=== PATIENT | female | born 2000 | race Caucasian/White ===

== ENCOUNTER 2019-11-28 18:04 | Emergency (ER) | payer OTHER ==
--- OUTSIDE RECORDS SUMMARY | 2019-11-28 18:07 | XMS REPORT | Continuity of Care Document ---
:2000 Author Organization [facility] Care Team Providers Name Role Phone RAYMON HARDWICK Admitting Physician RAYMON HARDWICK Attending Physician Hospital Admission Diagnosis Code Admission Diagnosis Date [id number] Spotting per vagina in Social History Element Description Code Description Smoking Status Start Date End Date Code System Smoking Status [id number] Unknown if ever SNOMED-CT smoked Problems Code Code System Problem Name Start Date End Date Status 78653954 SNOMED-CT Threatened 04/02/2019 Active 46153023 SNOMED-CT Threatened 03/12/2019 Active 012833769 SNOMED-CT Cellulitis of periorbital region u Active 6661171 SNOMED-CT Conjunctivitis u Active Medications RxNorm Medication Dose Route Instructions Indications Start End Status Date Date Doxycycline 100 oral orally every Active Hyclate Oral milligram 12 hours Fluconazole 200 200 oral orally twice Active MG Oral Tablet milligram a week (1 PO Twice a week for 2 weeks) 539052 moxifloxacin 5 1 drop ophthalmic into the Active MG/ML Ophthalmic (eye) eye(s) 3 Solution times per day (right eye) 19821211 Sulfamethoxazole 1 tablet oral orally every Active 800 MG / 12 hours Trimethoprim 160 MG Oral Tablet 19821211 Sulfamethoxazole 1 tablet oral orally 2 Active 800 MG / times per day Trimethoprim 160 MG Oral Tablet Allergies No Known Allergies Results No data in the system Vital Signs Vitals Value Date Body Temperature 97.4 F 04/02/2019 Pulse Rate 91 (beats)/min 04/02/2019 Respiratory Rate 15 (breaths)/min 04/02/2019 O2% BldC Oximetry 98 % 04/02/2019 BP Systolic 124 mmHg 04/02/2019 BP Diastolic 72 mmHg 04/02/2019 Weight Measured 125 lbs 04/02/2019 Advance Directives Undefined Advance Directive Directive Type Effective Date Foot Gatherer Notes Supporting Document Name Address Phone No Directive Type 12/15/2012 21:27 Not Specified Not Specified Not Specified None No specified Family History No Data Reported Plan of Care No data in the system Procedures No data in the system Encounters Date Code Diagnosis Status (ICD10) - O200 THREATENED Active Immunizations No data in the system Functional Status No data in the system Hospital Discharge Instructions Discharge Instructions 2Discharge Diagnosisthreatened abortionImportant InformationConsult your physician or return to the Emergency Department immediately if worse, if not better as expected, or if any problems arise.Follow Up CareYesImportant InformationPlease understand that you have received care only on an emergency basis. If your condition does notimprove, you should call your personal physician for follow-up care. If you do not have a physician,you may call the referred physician listed.If you have questions about your care or these discharge instructions, you may call the Emergency Department. Please take your discharge paperwork with you to any follow-up appointments.Follow Up CarePatient To ScheduleFollow-Up With:Primary Care PhysicianPrescriptions Given Via:N/APatient TeachingPatient education provided
--- OUTSIDE RECORDS SUMMARY | 2019-11-28 18:07 | XMS REPORT ---
:2000 [facility] [address] [place] [address] Care Team Providers Name Role Phone LISA ALLAN Unavailable Unavailable DANY SERVIN Unavailable Unavailable Problems This patient has no known problems. Allergies, Adverse Reactions, Alerts This patient has no known allergies or adverse reactions. Medications This patient has no known medications. Results Test Description Test Time Test Comments Text Results Atomic Results Result Comments US INTRAVAGINAL OB 2019-03-17 08:46:40 Procedure: Pelvic ultrasound.CLINICAL INDICATION: [id number]: Abdominal pain in . Last menstrualperiod was unknown. Beta hCG level of 160.Order Date: 03/16/2019 6:41 PMCOMPARISON: None available.TECHNIQUE: Transabdominal and endovaginal sonography was performedFINDINGS:The uterus is normal in size and echogenicity. The endometrium measures 1.0 cmon endovaginal images. There is no focal myometrial abnormality. There is asubtle ovoid anechoic structure seen within the superior endometrial cavitywhich may represent an early gestational sac. However this is nonspecific. Nointrauterine or extrauterine gestational sac identified. Findings arenonspecific and may be within the broad range of normal for early termpregnancy. Recommend short-term followup and beta hCG trending.The right ovary is normal in size and echogenicity. Normal arterial flowwithout solid or cystic mass lesion.The left ovary is normal in size and echogenicity. Normal arterial flow withoutsolid or cystic mass lesion.There is no free fluid.IMPRESSION:1. Endometrial thickening with potential small intrauterine gestational sac seenwithin the superior endometrial canal. However findings are nonspecific. Nodefinite intrauterine or extrauterine gestation identified. Given low beta-hCGlevel, this may be within the broad range of normal. Short-term sonographicfollowup and beta hCG trending is recommended.This final report was electronically signed by Dr Maria Zhou MD 03/17/20198:40 AMDictated By: MARIA ZHOUDate: 03/17/2019 08:40 RH 2019-03-16 19:03:00 Test Item Value Reference Range Comments Rh (test code=RH) Positive Positive,Negative Weak D (Du) (test code=DU) N/A ED2 [id number] 17:25:00 Test Item Value Reference Range Comments WBC (test code=WBC) 7.0 10\S\9/L 3.5-10.0 LY% (test code=LY) 22.2 % 15.0-50.0 MIDS% (test code=MIDS) 6.6 % 2.0-15.0 Granulocytes % (test code=GRA%) 71.2 % 35.0-80.0 Lymphocytes (test code=LYMPH) 1.5 10\S\9/L 0.5-5.0 MID (test code=MID) 0.5 10\S\9/L 0.1-1.5 Granulocytes (test code=GRAN) 5.0 10\S\9/L 1.2-8.0 RBC (test code=RBC) 4.29 10\S\12/L 3.50-5.50 Hemoglobin (test code=HGB) 12.7 gm/dl 11.5-16.5 Hematocrit (test code=HCT) 37.0 % 35.0-55.0 MCV (test code=MCV) 86.2 fL 75.0-100.0 MCH (test code=MCH) 29.6 pg 25.0-35.0 MCHC (test code=MCHC) 34.3 gm/dl 31.0-38.0 RDW % (test code=RDW%) 12.9 % 11.0-16.0 Platelet (test code=PLT) 227 10\S\9/L 100-400 MPV (test code=MPV) 7.1 fL 8.0-11.0 ED2 BETA HCG [id number] 17:25:00 Test Item Value Reference Range Comments BHCG II (test 195.10 IU/L 0.00-4.80 A NEW EXPANDED METHOD FOR BHCG code=BHCGII) WILL BE INTRODUCED ON MAY 18, 2007. THE DYNAMIC RANGE OF THE TEST HAS BEEN INCREASED ALLOWING FOR FEWER DILUTUIONS, AND THE GESTATION WEEKS HAVE BEEN AGGREGATED TO ALLOW FOR EASE OF INTREPRETATION. PLEASE REFER TO THE INTERPRETATION TABLE BELOW. Beta hCG levels in non- individuals=<4.83 IU/L GESTATIONAL AGE: 1-10 weeks 63.70 - 950957.00 IU/L 11-15 weeks 47487.00 - 873852.00 IU/L 16-22 weeks 9383.80 - 61033.00 IU/L 23-40 weeks 1737.20 - 30766.00 IU/L Detection of very Low Levels of hCG does not exclude . Repeat testing after 48 Hrs. is recommended. THIS ASSAY SHOULD NOT BE USED TO DIAGNOSE ANY CONDITION UNRELATED TO . ED2 [id number] 17:25:00 Test Item Value Reference Range Comments Sodium (test code=NA) 141 mmol/l 128-145 Potassium (test code=K) 3.6 mmol/l 3.6-5.1 CO2 (test code=CO2) 28 mmol/l 18-33 Chloride (test code=CL) 104 mmol/l 98-108 Glucose (test code=GLU) 96 mg/dl 73-118 Calcium (test code=CALC) 9.5 mg/dl 8.0-10.3 BUN (test code=BUN) 15 mg/dl 7-22 Creatinine (test code=CREA) 0.6 mg/dl 0.6-1.2 Alkaline Phos (test code=ALKP) 59 U/L 42-141 ALT (SGPT) (test code=ALT) 68 U/L 10-47 AST (SGOT) (test code=AST) 42 U/L 11-38 Total Bilirubin (test code=TBIL) 0.6 mg/dl 0.2-1.6 Albumin (test code=ALB) 3.9 gm/dl 3.3-5.5 T Protein (test code=TP) 6.9 gm/dl 6.4-8.1 ED2 URINE [id number] 17:24:00 Test Item Value Reference Range Comments Color (test code=UCOLR) Yellow Lt. Yellow Clarity (test code=UCLAR) Clear Glucose (test code=UGLUC) NEGATIVE NEGATIVE Bilirubin (test code=UBILI) NEGATIVE NEGATIVE Ketones (test code=UKET) TRACE NEGATIVE Specific [place]ty[place]unk (test code=USPGR) 1.025 1.005-1.030 Blood (test code=UBLD) NEGATIVE NEGATIVE PH (test code=UPH) 7.0 4.5-8.0 Protein (test code=UPROT) NEGATIVE NEGATIVE Urobilinogen (test code=U UROB) 0.2 >0.2 Nitrite (test code=UNITR) NEGATIVE NEGATIVE Leukocyte Esterase (test code=ULEUK) NEGATIVE NEGATIVE ED2 , [id number] 17:24:00 Test Item Value Reference Range Comments (Urine) (test code=PREGU) Positive CULTURE, [id number] 08:47:00Specimen: Hand LeftCollected: 03/28/2017 13: 20 Status: Final Last Updated: 03/31/2017 08:47 Culture Result (Final) (Final) No Growth After 72 Hours
--- OUTSIDE RECORDS SUMMARY | 2019-11-28 18:07 | XMS REPORT | Continuity of Care Document ---
:2000 Author Organization [facility] Care Team Providers Name Role Phone LISA ALLAN Admitting Physician LISA ALLAN Attending Physician Hospital Admission Diagnosis Code Admission Diagnosis Date Abdominal pain Social History Element Description Code Description Smoking Status Start Date End Date Code System Smoking Status [id number] Current every day SNOMED-CT smoker Problems Code Code System Problem Name Start Date End Date Status 34373992 SNOMED-CT Threatened 03/12/2019 Active 087752567 SNOMED-CT Cellulitis of periorbital region u Active 6736461 SNOMED-CT Conjunctivitis u Active Medications RxNorm Medication Dose Route Instructions Indications Start End Status Date Date Doxycycline 100 oral orally every Active Hyclate Oral milligram 12 hours Fluconazole 200 200 oral orally twice Active MG Oral Tablet milligram a week (1 PO Twice a week for 2 weeks) 101742 moxifloxacin 5 1 drop ophthalmic into the Active MG/ML Ophthalmic (eye) eye(s) 3 Solution times per day (right eye) 19821211 Sulfamethoxazole 1 tablet oral orally every Active 800 MG / 12 hours Trimethoprim 160 MG Oral Tablet 19821211 Sulfamethoxazole 1 tablet oral orally 2 Active 800 MG / times per day Trimethoprim 160 MG Oral Tablet Allergies No Known Allergies Results Laboratory Results Order: BLOOD TYPING RH( D )Specimen Source: BLOODBody Site: LOINC Test Result Flag Range Unit Date 1Rh Positive Positive,Negative 03/16/2019 18:29 1Wenancy Resendiz (Oc) N/A 03/16/2019 18:29 Performing Lab Footnotes:[address] [place] [address] - [id number] - [address] [facility] [address] [place] [address] [facility] - MD: DIRECTOR ODALIS RIVER__ ____ Order: ED2 BETA HCG IISpecimen Source: BLOODBody Site: LOINC Test Result Flag Range Unit Date 1BHCG II 195.1 H 0.00-4.80 IU/L 03/16/2019 17:08 Note: A NEW EXPANDED METHOD FOR BHCG WILL BE INTRODUCED ON MAY 18, 2007. THE DYNAMIC RANGE OF THE TEST HAS BEEN INCREASED ALLOWING FOR FEWER DILUTUIONS, AND THE GESTATION WEEKS HAVE BEEN AGGREGATED TO ALLOW FOR EASE OF INTREPRETATION. PLEASE REFER TO THE INTERPRETATION TABLE BELOW. Beta hCG levels in non- individuals=<4.83 IU/L GESTATIONAL AGE: 1-10 weeks 63.70 - 324849.00 IU/L 11-15 weeks 48784.00 - 619409.00 IU/L 16-22 weeks 9383.80 - 01476.00 IU/L 23-40 weeks 1737.20 - 43787.00 IU/L Detection of very Low Levels of hCG does not exclude . Repeat testing after 48 Hrs. is recommended. THIS ASSAY SHOULD NOT BE USED TO DIAGNOSE ANY CONDITION UNRELATED TO . Performing Lab Footnotes:[address] [place], [place] [address] - [id number] - [address] [place] [address] [facility] - MD: DIRECTOR ODALIS RIVER__ ____ Order: ED2 CBCSpecimen Source: BLOODBody Site: LOINC Test Result Flag Range Unit Date 1WBC 7 3.5-10.0 10^9/L 03/16/2019 17:08 1LY% 22.2 15.0-50.0 % 03/16/2019 17:08 1MIDS% 6.6 2.0-15.0 % 03/16/2019 17:08 1Granulocytes % 71.2 35.0-80.0 % 03/16/2019 17:08 1Lymphocytes 1.5 0.5-5.0 10^9/L 03/16/2019 17:08 1MID 0.5 0.1-1.5 10^9/L 03/16/2019 17:08 1Granulocytes 5 1.2-8.0 10^9/L 03/16/2019 17:08 1RBC 4.29 3.50-5.50 10^12/L 03/16/2019 17:08 1Hemoglobin 12.7 11.5-16.5 gm/dl 03/16/2019 17:08 1Hematocrit 37 35.0-55.0 % 03/16/2019 17:08 1MCV 86.2 75.0-100.0 fL 03/16/2019 17:08 1MCH 29.6 25.0-35.0 pg 03/16/2019 17:08 1MCHC 34.3 31.0-38.0 gm/dl 03/16/2019 17:08 1RDW % 12.9 11.0-16.0 % 03/16/2019 17:08 1Platelet 227 100-400 10^9/L 03/16/2019 17:08 1MPV 7.1 A 8.0-11.0 fL 03/16/2019 17:08 Performing Lab Footnotes:[address] [place], [place] [address] - [id number] - [address] [place] [address] - [facility] [place] [address] [facility] - MD: DIRECTOR ODALIS RIVER__ ____ Order: ED2 CMPSpecimen Source: BLOODBody Site: LOINC Test Result Flag Range Unit Date 1Sodium 141 128-145 mmol/l 03/16/2019 17:08 1Potassium 3.6 3.6-5.1 mmol/l 03/16/2019 17:08 1CO2 28 18-33 mmol/l 03/16/2019 17:08 1Chloride 104 98-108 mmol/l 03/16/2019 17:08 1Glucose 96 73-118 mg/dl 03/16/2019 17:08 1Calcium 9.5 8.0-10.3 mg/dl 03/16/2019 17:08 1BUN 15 7-22 mg/dl 03/16/2019 17:08 1Creatinine 0.6 0.6-1.2 mg/dl 03/16/2019 17:08 1Alkaline Phos 59 42-141 U/L 03/16/2019 17:08 1ALT (SGPT) 68 H 10-47 U/L 03/16/2019 17:08 1AST (SGOT) 42 H 11-38 U/L 03/16/2019 17:08 1Total Bilirubin 0.6 0.2-1.6 mg/dl 03/16/2019 17:08 1Albumin 3.9 3.3-5.5 gm/dl 03/16/2019 17:08 1T Protein 6.9 6.4-8.1 gm/dl 03/16/2019 17:08 Performing Lab Footnotes:[address] [place] [address] - [id number] - [address] [place] [address] [address] [place] [address] [facility] [place] MD: DIRECTOR ODALIS RIVER__ ____ Order: ED2 TEST URINESpecimen Source: URINE SPECIMENSBody Site: LOINC Test Result Flag Range Unit Date 1Pregnancy (Urine) Positive 03/16/2019 17:08 Performing Lab Footnotes:[address] [place] [address] - [id number] - [address] [facility] [address] [place], [place] [address] [address] [facility] MD: DIRECTOR JACOBO Jacinda PERICO__ ____ Order: ED2 URINE DIPSTICKSpecimen Source: URINE SPECIMENSBody Site: [facility] Test Result Flag Range Unit Date 57786 1Color:Type:Pt:Urine:Nom Yellow A Lt. Yellow 03/16/2019 17:08 5767-9 1Appearance:Aper:Pt:Urine:Nom Clear 03/16/2019 17:08 2349-9 1Glucose:ACnc:Pt:Urine:Ord NEGATIVE NEGATIVE 03/16/2019 17:08 5770-3 1Bilirubin:ACnc:Pt:Urine:Ord: NEGATIVE NEGATIVE 03/16/2019 17:08 Test strip 2514-8 1Ketones:ACnc:Pt:Urine:Ord:Te TRACE A NEGATIVE 03/16/2019 17:08 st strip 5811-5 1Specific 1.025 A 1.005-1.030 03/16/2019 17:08 gravity:Rden:Pt:Urine:Qn:Test strip 5794-3 1Hemoglobin:ACnc:Pt:Urine:Ord NEGATIVE NEGATIVE 03/16/2019 17:08 :Test strip 5803-2 1pH:LsCnc:Pt:Urine:Qn:Test 7.0 A 4.5-8.0 03/16/2019 17:08 strip 02820-8 1Protein:ACnc:Pt:Urine:Ord:Te NEGATIVE NEGATIVE 03/16/2019 17: 08 st strip 5818-0 1Urobilinogen:ACnc:Pt:Urine:O 0.2 0.2 03/16/2019 17:08 rd:Test strip 5802-4 1Nitrite:ACnc:Pt:Urine:Ord:Te NEGATIVE NEGATIVE 03/16/2019 17:08 st strip 5799-2 1Leukocyte NEGATIVE NEGATIVE 03/16/2019 17:08 esterase:ACnc:Pt:Urine:Ord:Te st strip Performing Lab Footnotes:[facility] - [id number] - [address] [facility] [address] [facility] [place] [address] [facility] - MD: DIRECTOR ODALIS RIVER__ ____ Radiology Results Order: [id number] US INTRAVAGINAL OBExam Completion Date:03/16/2019 18:41Procedure: Pelvic ultrasound.CLINICAL INDICATION : [id number]: Abdominal pain in . Last menstrualperiod was [...] be within the broad range of normal. Short- term sonographicfollowup and beta hCG trending is recommended.This final report was electronically signed by Dr Maria Zhou MD 03/17/20198:40 AMDictated By: MARIA ZHOUDate: 03/17/2019 08:40 Vital Signs Vitals Value Date Body Temperature 97.4 F 03/16/2019 Pulse Rate 93 (beats)/min 03/16/2019 Respiratory Rate 16 (breaths)/min 03/16/2019 O2% BldC Oximetry 100 % 03/16/2019 BP Systolic 127 mmHg 03/16/2019 BP Diastolic 77 mmHg 03/16/2019 Height 65 in 03/16/2019 Weight Measured 124.34 lbs 03/16/2019 BSA (Body Surface Area) 1.20010 m2 03/16/2019 BMI (Body Mass Index) 20.7 kg/m2 03/16/2019 Advance Directives Undefined Advance Directive Directive Type Effective Date Shipbuilding Draftsperson Notes Supporting Document Name Address Phone No Directive Type 12/15/2012 21:27 Not Specified Not Specified Not Specified None No specified Family History No Data Reported Plan of Care No data in the system Procedures Code Code System Procedure Name Target Site Date of Procedure US INTRAVAGINAL OB 03/17/2019 08:46 Encounters Date Code Diagnosis Status (ICD10) - O200 THREATENED Active Immunizations No data in the system Functional Status No data in the system Hospital Discharge Instructions Discharge Instructions 2Discharge Diagnosisthreatened miscarriageImportant InformationConsult your physician or return to the [...] discharge paperwork with you to any follow-up appointments.Follow-Up With:Primary Care PhysicianObstetricianActivity LevelAs tolerated, unrestrictedDietRegularPrescriptions Given Via:N/APatient TeachingPatient education provided
[2019-11-28] MEDS ORDERED: NA CHLORIDE 0.9% 1,000 ML ONE (19:25)
[2019-11-28 19:58] LABS: Basophils % 1.3 % (0-1.3); Hematocrit 39.1 % (36.0-45.0); Lymphocytes % 33.3 % (15.3-44.8); MPV 7.3 fL (7.6-11.3)
[2019-11-28 20:13] LABS: ALT/SGPT 29 U/L (12-78); AST/SGOT 19 U/L (15-37); Albumin 3.4 g/dL (3.4-5.0); Alkaline Phosphatase 156 U/L (45-117); BUN Blood Urea Nitrogen 11 mg/dL (7-18); Bicarbonate 25 mmol/L (21-32); Bilirubin Direct 0.1 mg/dL (0-0.2); Bilirubin Total 0.5 mg/dL (0.2-1.0); Glucose Level 84 mg/dL (74-106); Potassium 3.8 mmol/L (3.5-5.1); Protein, Total 7.7 g/dL (6.4-8.2); Sodium Level 139 mmol/L (136-145)
--- NOTE | 2019-11-28 20:49 | RAD REPORT ---
EXAM DESCRIPTION: US - Transvaginal Study Probe - 11/28/2019 8:37 pm CLINICAL HISTORY: ABD PAIN Pelvic pain. COMPARISON: No comparisons FINDINGS: The uterus is mildly enlarged in size. The uterus measures 11.4 x 8.6 x 6.2 cm. The endometrial stripe is mildly thickened and contains mild heterogenous material measuring up to 15 mm. Both ovaries are normal in size, shape and echotexture. The right ovary measures 3.1 x 1.9 x 1.4 cm. The left ovary measures 3.4 x 1.8 x 1.4 cm. No ovarian or parovarian lesions. No adnexal masses. Normal Doppler blood flow was demonstrated to both ovaries. No significant pelvic ascites. IMPRESSION: No acute abnormality is detected. Mildly enlarged uterus size and mild thickening of the endometrial stripe is not considered unusual for recent status.
[2019-11-28 20:56] LABS: Urine Blood 3+ (NEG); Urine Glucose NEGATIVE (NEG); Urine Protein 1+ (NEG); Urine Specific Gravity >1.030 (1.005-1.030)
--- NOTE | 2019-11-28 21:01 | ER ---
Nurse's Notes [facility] Name: Mare Martin Age: 19 yrs Sex: Female : 2000 Arrival Date: 11/28/2019 Time: 18:06 Bed 17 Private MD: Diagnosis: Myalgia;Weakness Presentation: 11/28 18:14 Presenting complaint: Patient states: i had a baby 2 weeks ago and for the last week i tw2 have had a fever on and off, my body hurts, it hurts to touch my skin, i havent been able to eat, the fever breaks and is run down, my lower stomach hurts. Transition of care: patient was not received from another setting of care. Risk Assessment: Do you want to hurt yourself or someone else? Patient reports no desire to harm self or others. Initial Sepsis Screen: Does the patient meet any 2 criteria? HR > 90 bpm. Does the patient have a suspected source of infection? No. Patient's initial sepsis screen is negative. Care prior to arrival: None. 18:14 Method Of Arrival: Ambulatory tw2 18:14 Acuity: KEIKO 3 tw2 19:15 Onset of symptoms was November 28, 2019. Triage Assessment: 18:15 General: Appears in no apparent distress. slender, well groomed, Behavior is calm, tw2 cooperative, appropriate for age. Pain: Complains of pain in abdomen. Neuro: Reports i also have a headache. GI: Reports lower abdominal pain, upper abdominal pain, 'nothings sounds good to me, i just cant eat". Historical: - Allergies: 18:18 No Known Allergies; tw2 - Home Meds: 18:18 None [Active]; tw2 - PMHx: 18:18 None; tw2 - PSHx: 18:18 None; tw2 - Immunization history:: Adult Immunizations. - Coronavirus screen:: The patient has NOT traveled to [place] in the past 14 days. - Social history:: Smoking status: . - Ebola Screening: : Patient denies travel to an Ebola-affected area in the 21 days before illness onset. Screenin:15 Abuse screen: Denies threats or abuse. Denies injuries from another. Nutritional screening: No deficits noted. Tuberculosis screening: No symptoms or risk factors identified. Fall Risk None identified. Assessment: 19:15 VAN Scoring: Arm Drift: Patients demonstrates NO arm weakness. Patient is VAN Negative. Visual Disturbance: No visual disturbance noted. Aphasia: No aphasia noted. Neglect: No neglect noted. 19:15 General: Appears in no apparent distress. Behavior is calm, cooperative, appropriate wh for age. Neuro: Level of Consciousness is awake, alert, obeys commands, Oriented to person, place, time, situation, Appropriate for age Emt B are equal bilaterally Moves all extremities. Gait is steady, Speech is normal, Facial symmetry appears normal, Pupils are PERRLA. Cardiovascular: Heart tones S1 S2. Respiratory: Airway is patent Respiratory effort is even, unlabored, Respiratory pattern is regular, symmetrical. GI: Abdomen is flat, non-distended. : No signs and/or symptoms were reported regarding the genitourinary system. EENT: No signs and/or symptoms were reported regarding the EENT system. Derm: Skin is intact, is healthy with good turgor, Skin is pink, warm \\T\\ dry. normal. Musculoskeletal: Circulation, motion, and sensation intact. 19:57 Reassessment: Patient appears in no apparent distress at this time. No changes from previously documented assessment. Patient and/or family updated on plan of care and expected duration. Pain level reassessed. Patient is alert, oriented x 3, equal unlabored respirations, skin warm/dry/pink. 21:36 Reassessment: Patient appears in no apparent distress at this time. No changes from previously documented assessment. Patient and/or family updated on plan of care and expected duration. Pain level reassessed. Patient is alert, oriented x 3, equal unlabored respirations, skin warm/dry/pink. Vital Signs: 18:16 BP 112 / 88; Pulse 107; Resp 17; Temp 98.0(O); Pulse Ox 99% on R/A; Weight 63.09 kg tw2 (M); Pain 8/10; 19:45 BP 102 / 76; Pulse 73; Resp 16; Pulse Ox 100% on R/A; wh 21:15 BP 118 / 76; Pulse 91; Resp 18; Pulse Ox 99% on R/A; NIH Stroke Scale Scores: 19:15 NIHSS Score: 0 ED Course: 18:06 Patient arrived in ED. rg4 18:15 Triage completed. tw2 18:15 Arm band placed on. tw2 18:22 Roszak, Riley, PA is PHCP. jr8 18:22 Erick Juarez MD is Attending Physician. jr8 18:25 Aislinn Mart, DORINA is Primary Nurse. ca1 19:15 Patient has correct armband on for positive identification. Bed in low position. Call light in reach. Side rails up X 1. Pulse ox on. NIBP on. 19:30 Flu and/or RSV swab sent to lab. Inserted saline lock: 20 gauge in right antecubital ds4 area, using aseptic technique. Blood collected. 19:40 LFT's Sent. ds4 19:40 Basic Metabolic Panel Sent. ds4 19:40 CBC with Diff Sent. ds4 19:40 Influenza Screen (a \\T\\ B) Sent. ds4 20:22 Influenza Screen (a \\T\\ B) Sent. ds4 20:37 Transvaginal Study (probe) In Process Unspecified. EDMS 21:36 No provider procedures requiring assistance completed. IV discontinued, intact, bleeding controlled, No redness/swelling at site. Administered Medications: 19:30 Drug: NS 0.9% 1000 ml Route: IV; Rate: 1000 ml; Site: right antecubital; 21:38 Follow up: Response: No adverse reaction; IV Status: Completed infusion Outcome: 21:00 Discharge ordered by . [facility] 21:37 Discharged to home ambulatory, with family. 21:37 Condition: stable 21:37 Discharge instructions given to patient, family, Instructed on discharge instructions, follow up and referral plans. medication usage, POC Demonstrated understanding of instructions, follow-up care, medications, POC Prescriptions given X 1. 21:38 Patient left the ED. NIH Stroke Scale - NIH Stroke Score Date: 11/28/2019 Time: 19:15 Total Score = 0 1a. Level of Consciousness (LOC) - 0(Alert) 1b. Level of Consciousness (LOC) (Year \\T\\ Age) - 0(Both) 1c. LOC Commands (Open \\T\\ Closes Eyes/Photovoltaic Panel Installer) - 0(Both) 2. Best Gaze (Lateral Gaze Paresis) - 0(Normal) 3. Visual Field Loss - 0(No visual loss) 4. Facial Palsy - 0(Normal) 5a. Left Arm: Motor (10-second hold) - 0(No drift) 5b. Right Arm: Motor (10-second hold) - 0(No drift) 6a. Left Leg: Motor (5-second hold - always test supine) - 0(No drift) 6b. Right Leg: Motor (5-second hold - always test supine) - 0(No drift) 7. Limb Ataxia (finger/nose \\T\\ heel/wheeler - test with eyes open) - 0(Absent) 8. Sensory Loss (pinprick arms/legs/face) - 0(Normal) 9. Best Language: Aphasia (description/naming/reading) - 0(No aphasia) 10. Dysarthria (speech clarity - read or repeat words) - 0(Normal) 11. Extinction and Inattention (visual/tactile/auditory/spatial/personal) - 0(No abnormality) Initials: Signatures: Dispatcher [employer] Riley Hope PA PA jr8 Ameya Carreon ds4 Sada Wang RN RN tw2 Nanette Solano rg4 Bandar Drew Aislinn Mart RN RN ca1
--- NOTE | 2019-11-28 21:01 | EDPHYS ---
Physician Documentation [facility] Name: Mare Martin Age: 19 yrs Sex: Female : 2000 Arrival Date: 11/28/2019 Time: 18:06 Bed 17 Private MD: ED Physician Erick Juarez HPI: 11/28 20:02 This 19 yrs old Female presents to ER via Ambulatory with complaints of jr8 Fever, Weakness. 20:02 Onset: The symptoms/episode began/occurred gradually, 2 week(s) ago. Modifying factors: jr8 there are no obvious modifying factors. Associated signs and symptoms: Pertinent positives: abdominal pain, arthralgias, chills, dysuria. Severity of symptoms: At their worst the symptoms were moderate in the emergency department the symptoms are unchanged. The patient has not experienced similar symptoms in the past. The patient has not recently seen a physician. Patient stated that she is approximately 2 weeks post of full term baby that was delivered vaginally. Stated that a couple of days after and then through to now has had odd body aches, chills, on/off fevers, lower abdominal pain that is intensifying, and dysuria. Just moved form [place] so has not f/u with OB since delivery . Historical: - Allergies: 18:18 No Known Allergies; tw2 - Home Meds: 18:18 None [Active]; tw2 - PMHx: 18:18 None; tw2 - PSHx: 18:18 None; tw2 - Immunization history:: Adult Immunizations. - Coronavirus screen:: The patient has NOT traveled to [place] in the past 14 days. - Social history:: Smoking status: . - Ebola Screening: : Patient denies travel to an Ebola-affected area in the 21 days before illness onset. ROS: 20:02 Eyes: Negative for injury, pain, redness, and discharge, ENT: Negative for injury, jr8 pain, and discharge, Neck: Negative for injury, pain, and swelling, Cardiovascular: Negative for chest pain, palpitations, and edema, Respiratory: Negative for shortness of breath, cough, wheezing, and pleuritic chest pain, Back: Negative for injury and pain, MS/Extremity: Negative for injury and deformity, Skin: Negative for injury, rash, and discoloration, Neuro: Negative for headache, weakness, numbness, tingling, and seizure. 20:02 Constitutional: Positive for body aches, chills, malaise. 20:02 Abdomen/GI: Positive for abdominal pain, Negative for nausea, vomiting, and diarrhea, abdominal cramps, abdominal distension, anorexia, dysphagia, hematemesis, black/tarry stool, rectal pain, rectal bleeding, bowel incontinence, flatulence. 20:02 : Positive for burning with urination, vaginal bleeding, Negative for vaginal discharge, vaginal itching. Exam: 20:02 Eyes: Pupils equal round and reactive to light, extra-ocular motions intact. Lids and jr8 lashes normal. Conjunctiva and sclera are non-icteric and not injected. Cornea within normal limits. Periorbital areas with no swelling, redness, or edema. ENT: Nares patent. No nasal discharge, no septal abnormalities noted. Tympanic membranes are normal and external auditory canals are clear. Oropharynx with no redness, swelling, or masses, exudates, or evidence of obstruction, uvula midline. Mucous membranes moist. Neck: Trachea midline, no thyromegaly or masses palpated, and no cervical lymphadenopathy. Supple, full range of motion without nuchal rigidity, or vertebral point tenderness. No Meningismus. Cardiovascular: Regular rate and rhythm with a normal S1 and S2. No gallops, murmurs, or rubs. Normal PMI, no JVD. No pulse deficits. Respiratory: Lungs have equal breath sounds bilaterally, clear to auscultation and percussion. No rales, rhonchi or wheezes noted. No increased work of breathing, no retractions or nasal flaring. Back: No spinal tenderness. No costovertebral tenderness. Full range of motion. Skin: Warm, dry with normal turgor. Normal color with no rashes, no lesions, and no evidence of cellulitis. MS/ Extremity: Pulses equal, no cyanosis. Neurovascular intact. Full, normal range of motion. Neuro: Awake and alert, GCS 15, oriented to person, place, time, and situation. Cranial nerves II-XII grossly intact. Motor strength 5/5 in all extremities. Sensory grossly intact. Cerebellar exam normal. Normal gait. 20:02 Abdomen/GI: Inspection: abdomen appears normal, Bowel sounds: active, all quadrants, Palpation: soft, in all quadrants, mild abdominal tenderness, in the suprapubic area, mass, is not appreciated, rebound tenderness, is not appreciated, voluntary guarding, is not appreciated, involuntary guarding, is not appreciated, no appreciated organomegaly, Indicators: McBurney's point is not tender, Dubose's sign is negative, Liver: tenderness, is not appreciated. Vital Signs: 18:16 BP 112 / 88; Pulse 107; Resp 17; Temp 98.0(O); Pulse Ox 99% on R/A; Weight 63.09 kg tw2 (M); Pain 8/10; 19:45 BP 102 / 76; Pulse 73; Resp 16; Pulse Ox 100% on R/A; 21:15 BP 118 / 76; Pulse 91; Resp 18; Pulse Ox 99% on R/A; NIH Stroke Scale Scores: 19:15 NIHSS Score: 0 MDM: 18:38 Patient medically screened. [facility] 20:59 Data reviewed: vital signs, nurses notes, lab test result(s), radiologic studies, [facility] ultrasound. Data interpreted: Pulse oximetry: on room air is 100 %. Interpretation: normal. Counseling: I had a detailed discussion with the patient and/or guardian regarding: the historical points, exam findings, and any diagnostic results supporting the discharge/admit diagnosis, lab results, radiology results, the need for outpatient follow up, an OB/Gyne specialist, to return to the emergency department if symptoms worsen or persist or if there are any questions or concerns that arise at home. 21:18 ED course: Detailed discussion with patient about labs and diagnostics completed. At [facility] this time no sign of disseminated infection. No URI symptoms, negative flu, no chest congestion, cough, shortness of breath. No vomiting or diarrhea. Abdomen soft but with mild tenderness over suprapubic region. US WNL post delivery. Since the fevers have been on/off for greater then a week. Will try her on some Abx. Otherwise needs to f/u in next few days. If worse to come back . 11/28 19:13 Order name: Urine Microscopic Only; Complete Time: 21:17 [facility] 11/28 19:13 Order name: Influenza Screen (a \T\ B); Complete Time: 20:53 [facility] 11/28 19:13 Order name: CBC with Diff; Complete Time: 20:21 [facility] 11/28 19:13 Order name: Basic Metabolic Panel; Complete Time: 20:21 [facility] 11/28 19:13 Order name: LFT's; Complete Time: 20:21 [facility] 11/28 20:52 Order name: Urine Dipstick--Ancillary (enter results); Complete Time: 20:59 [facility] 11/28 19:13 Order name: Urine Dipstick-Ancillary (obtain specimen); Complete Time: 20:46 [facility] 11/28 19:13 Order name: IV; Complete Time: 19:40 [facility] 11/28 19:59 Order name: Transvaginal Study (probe); Complete Time: 20:59 [facility] 11/28 20:52 Order name: Urine --Ancillary (enter results); Complete Time: 20:59 [facility] 11/28 21:18 Order name: Mayes Screen Profile [facility] Administered Medications: 19:30 Drug: NS 0.9% 1000 ml Route: IV; Rate: 1000 ml; Site: right antecubital; 21:38 Follow up: Response: No adverse reaction; IV Status: Completed infusion Disposition: 11/29 07:02 Co-signature as Attending Physician, Erick Juarez MD I agree with the assessment and kdr plan of care. 07:02 Co-signature as Attending Physician, Erick Juarez MD. [facility] Disposition: 11/28/19 21:00 Discharged to Home. Impression: Myalgia, Weakness. - Condition is Stable. - Discharge Instructions: Weakness, Fatigue. - Prescriptions for Augmentin 875- 125 mg Oral Tablet - take 1 tablet by ORAL route every 12 hours for 10 days; 20 tablet. - Medication Reconciliation Form, Thank You Letter, Antibiotic Education, Prescription Opioid Use form. - Follow up: Private Physician; When: 5 - 6 days; Reason: Recheck today's complaints, Continuance of care, Re-evaluation by your physician. - Problem is new. - Symptoms have improved. NIH Stroke Scale - NIH Stroke Score Date: 11/28/2019 Time: 19:15 Total Score = 0 1a. Level of Consciousness (LOC) - 0(Alert) 1b. Level of Consciousness (LOC) (Year \T\ Age) - 0(Both) 1c. LOC Commands (Open \T\ Closes Eyes/Bakery Chef) - 0(Both) 2. Best Gaze (Lateral Gaze Paresis) - 0(Normal) 3. Visual Field Loss - 0(No visual loss) 4. Facial Palsy - 0(Normal) 5a. Left Arm: Motor (10-second hold) - 0(No drift) 5b. Right Arm: Motor (10-second hold) - 0(No drift) 6a. Left Leg: Motor (5-second hold - always test supine) - 0(No drift) 6b. Right Leg: Motor (5-second hold - always test supine) - 0(No drift) 7. Limb Ataxia (finger/nose \T\ heel/wheeler - test with eyes open) - 0(Absent) 8. Sensory Loss (pinprick arms/legs/face) - 0(Normal) 9. Best Language: Aphasia (description/naming/reading) - 0(No aphasia) 10. Dysarthria (speech clarity - read or repeat words) - 0(Normal) 11. Extinction and Inattention (visual/tactile/auditory/spatial/personal) - 0(No abnormality) Initials: Signatures: Dispatcher [employer] EDMS Erick Juarez MD MD kdr Roszak, Josh, PA PA jr8 Sada Wang RN RN tw2 Bandar Drew Corrections: (The following items were deleted from the chart) 11/28 21:38 21:00 11/28/2019 21:00 Discharged to Home. Impression: Myalgia; Weakness. Condition is Stable. Forms are Medication Reconciliation Form, Thank You Letter, Antibiotic Education, Prescription Opioid Use. Follow up: Private Physician; When: 5 - 6 days; Reason: Recheck today's complaints, Continuance of care, Re-evaluation by your physician. Problem is new. Symptoms have improved. jr8
[2019-11-28 21:05] LABS: Urine Amorphous Sediment 1+ /HPF (NONE SEEN); Urine Bacteria <20 /HPF (<20); Urine Culture Reflex Order NOT NEEDED; Urine Mucus HEAVY /HPF (NONE SEEN); Urine RBC <5 /HPF (NONE SEEN)
[2019-11-28 22:53] VITALS: TEMP 98
[2019-11-28 22:56] VITALS: BP 118/76; O2SAT 99
== END 2019-11-28 21:38 | disposition home or self-care (01) ==
LOC: ER 18:04
DX: M79.10 Myalgia, unspecified site (principal)
CPT/HCPCS: 96361; 85025; 80048; 36415; 86308; 81025; 80076; 87804 ×2; 76830; 96360; 99284; J7030; 81003; 81015

== ENCOUNTER 2019-12-12 12:56 | Emergency (ER) | payer OTHER ==
--- OUTSIDE RECORDS SUMMARY | 2019-12-12 12:59 | XMS REPORT ---
:2000 [facility] [address] [place] [address] Care Team Providers Name Role Phone LISA ALLAN Unavailable Unavailable DANY SERVIN Unavailable Unavailable Problems This patient has no known problems. Allergies, Adverse Reactions, Alerts This patient has no known allergies or adverse reactions. Medications This patient has no known medications. Results Test Description Test Time Test Comments Text Results Atomic Results Result Comments US INTRAVAGINAL OB 2019-03-17 08:46:40 Procedure: Pelvic ultrasound.CLINICAL INDICATION: [id number]: Abdominal pain in . Last menstrualperiod was [...] Weak D (Du) (test code=DU) N/A ED2 [id number] 17:25:00 Test Item Value Reference Range Comments [...] code=MPV) 7.1 fL 8.0-11.0 ED2 BETA HCG [id number] 17:25:00 Test Item Value Reference Range Comments [...] IU/L GESTATIONAL AGE: 1-10 weeks 63.70 - 081599.00 IU/L 11-15 weeks 62929.00 - 301809.00 IU/L 16-22 weeks 9383.80 - 04814.00 IU/L 23-40 weeks 1737.20 - 96980.00 IU/L Detection of very Low Levels of hCG does not exclude . Repeat testing after 48 Hrs. is recommended. THIS ASSAY SHOULD NOT BE USED TO DIAGNOSE ANY CONDITION UNRELATED TO . ED2 [id number] 17:25:00 Test Item Value Reference Range Comments [...] (test code=TP) 6.9 gm/dl 6.4-8.1 ED2 URINE [id number] 17:24:00 Test Item Value Reference Range Comments Color (test code=UCOLR) Yellow Lt. Yellow Clarity (test code=UCLAR) Clear Glucose (test code=UGLUC) NEGATIVE NEGATIVE Bilirubin (test code=UBILI) NEGATIVE NEGATIVE Ketones (test code=UKET) TRACE NEGATIVE Specific [place] (test code=USPGR) 1.025 1.005-1.030 Blood (test code=UBLD) NEGATIVE NEGATIVE PH (test code=UPH) 7.0 4.5-8.0 Protein (test code=UPROT) NEGATIVE NEGATIVE Urobilinogen (test code=U UROB) 0.2 >0.2 Nitrite (test code=UNITR) NEGATIVE NEGATIVE Leukocyte Esterase (test code=ULEUK) NEGATIVE NEGATIVE ED2 , [id number] 17:24:00 Test Item Value Reference Range Comments (Urine) (test code=PREGU) Positive CULTURE, [id number] 08:47:00Specimen: Hand LeftCollected: 03/28/2017 13: 20 Status: Final Last Updated: 03/31/2017 08:47 Culture Result (Final) (Final) No Growth After 72 Hours
--- NOTE | 2019-12-12 13:58 | RAD REPORT ---
EXAM DESCRIPTION: US - Abdomen Exam Limited - 12/12/2019 1:48 pm CLINICAL HISTORY: Abdominal pain. COMPARISON: None. FINDINGS: The gallbladder wall is not thickened. A gallstone is not seen. The biliary tree is normal caliber. IMPRESSION: Unremarkable gallbladder ultrasound.
[2019-12-12 14:26] LABS: Absolute Lymphocytes (CBC) 3.3 K/uL (0.7-4.9); Basophils % 0.6 % (0-1.3); Hematocrit 34.7 % (36.0-45.0); Lymphocytes % 46.7 % (15.3-44.8); MPV 6.9 fL (7.6-11.3)
[2019-12-12 14:41] LABS: Albumin 3.4 g/dL (3.4-5.0); Bilirubin Direct 0.1 mg/dL (0-0.2); Bilirubin Total 0.3 mg/dL (0.2-1.0); Potassium 3.9 mmol/L (3.5-5.1); Protein, Total 7.2 g/dL (6.4-8.2)
--- NOTE | 2019-12-12 14:48 | ER ---
Nurse's Notes [facility] Name: Mare Martin Age: 19 yrs Sex: Female : 2000 Arrival Date: 12/12/2019 Time: 12:59 Bed 28 Private MD: Diagnosis: Upper abdominal pain, unspecified Presentation: 12/11 13:27 Chief complaint: Patient states: past 6 days has had pain under diaphragm and under iw ribs, pain worsens after eating, gave a month ago,[place] snot had much of an appetite , was sent from OB office to look at gallbladder. Coronavirus screen: The patient has NOT traveled to a country currently being monitored by the [facility] within the last 14 days. Proceed with normal triage procedures. The patient has NOT had contact with any known and/or suspected case of coronavirus. Proceed with normal triage procedures. Ebola Screen: Patient negative for fever greater than or equal to 101.5 degrees Fahrenheit, and additional compatible Ebola Virus Disease symptoms Patient denies exposure to infectious person. Patient denies travel to an Ebola-affected area in the 21 days before illness onset. No symptoms or risks identified at this time. Initial Sepsis Screen: Does the patient meet any 2 criteria? No. Patient's initial sepsis screen is negative. Does the patient have a suspected source of infection? No. Patient's initial sepsis screen is negative. Risk Assessment: Do you want to hurt yourself or someone else? Patient reports no desire to harm self or others. 13:27 Method Of Arrival: Ambulatory iw 13:27 Acuity: KEIKO 3 iw 13:29 Note pt was prescribed an abx for a "bacterial infection", a medicine for a yeast iw infection and medication for anxiety by her OB. 14:00 Onset of symptoms was December 06, 2019. vc Triage Assessment: 14:00 General: Appears in no apparent distress. Behavior is calm, cooperative, appropriate vc for age. Pain: Complains of pain in right upper quadrant. 14:00 General: Appears in no apparent distress. comfortable. vc PLANT SUPERVISOR: 14:00 LMP N/A - Recent vc Historical: - Allergies: 13:28 No Known Allergies; iw - PSHx: 13:28 None; iw - Immunization history:: Adult Immunizations up to date. - Social history:: Smoking status: Patient uses alcohol, occasionally. Smoking status: Patient reports the use of cigarette tobacco products, denies chronic smoking, but will smoke occasionally. Screenin:00 Abuse screen: Denies threats or abuse. Nutritional screening: No deficits noted. vc Tuberculosis screening: No symptoms or risk factors identified. Fall Risk None identified. Assessment: 14:00 General: Appears in no apparent distress. uncomfortable, Behavior is calm, cooperative, vc appropriate for age. Pain: Complains of pain in right upper quadrant. Neuro: Level of Consciousness is awake, alert, obeys commands, Oriented to person, place, time, situation, Appropriate for age. Cardiovascular: Patient's skin is warm and dry. Respiratory: Respiratory effort is even, unlabored. GI: Reports upper abdominal pain, intolerance of food, nausea, vomiting. : No signs and/or symptoms were reported regarding the genitourinary system. EENT: No signs and/or symptoms were reported regarding the EENT system. Derm: Skin temperature is warm. Musculoskeletal: Circulation, motion, and sensation intact. Range of motion: intact in all extremities. 15:00 Reassessment: Patient and/or family updated on plan of care and expected duration. Pain vc level reassessed. Patient is alert, oriented x 3, equal unlabored respirations, skin warm/dry/pink. Patient states symptoms have improved. Vital Signs: 13:27 BP 130 / 88; Pulse 79; Resp 16; Temp 98.6; Pulse Ox 100% on R/A; Weight 62.6 kg; Height iw 5 ft. 5 in. (165.10 cm); Pain 8/10; 14:30 BP 103 / 82; Pulse 75; Resp 17; Pulse Ox 100% ; vc 15:00 BP 100 / 82; Pulse 84; Resp 15; Pulse Ox 100% on R/A; vc 13:27 Body Mass Index 22.96 (62.60 kg, 165.10 cm) iw ED Course: 12:59 Patient arrived in ED. fj1 13:16 Ines Reed [facility]C [facility]. kb 13:16 Erick Juarez MD is Attending Physician. kb 13:28 Triage completed. iw 13:30 Arm band placed on. iw 13:52 US Abdomen Limited In Process Unspecified. EDMS 13:53 Vicky Scherer, RN is Primary Nurse. vc 14:00 Patient has correct armband on for positive identification. Placed in gown. Bed in low vc position. Call light in reach. Pulse ox on. NIBP on. 15:15 No provider procedures requiring assistance completed. IV discontinued, intact, vc bleeding controlled, No redness/swelling at site. Pressure dressing applied. Administered Medications: 15:16 Drug: Pepcid 20 mg Route: IVP; Site: right antecubital; vc 15:17 Follow up: Response: Medication administered at discharge. vc 15:17 Drug: TORadol 30 mg Route: IVP; Site: right antecubital; vc 15:18 Follow up: Response: No adverse reaction; Medication administered at discharge. vc 15:17 Drug: Zofran (Ondansetron) 4 mg Route: IVP; Site: right antecubital; vc 15:17 Follow up: Response: No adverse reaction; Medication administered at discharge. vc Outcome: 14:47 Discharge ordered by . kb 15:15 Discharged to home ambulatory. vc 15:15 Condition: good 15:15 Discharge instructions given to patient, Instructed on discharge instructions, follow up and referral plans. medication usage, Demonstrated understanding of medications, Prescriptions given X 3. 15:19 Patient left the ED. vc Signatures: Dispatcher [employer] EDMS Ines Reed, DARYA-C STRUCTURAL MANAGER-Tram Lara RN DORINA iw Vicky Scherer RN RN vc James, Frank fj1 Corrections: (The following items were deleted from the chart) 15:33 15:24 General: Appears vc vc
--- NOTE | 2019-12-12 14:49 | EDPHYS ---
Physician Documentation [facility] Name: Mare Martin Age: 19 yrs Sex: Female : 2000 Arrival Date: 12/12/2019 Time: 12:59 Bed 28 Private MD: ED Physician Erick Juarez HPI: 12/11 14:11 This 19 yrs old Female presents to ER via Ambulatory with complaints of REFER kb FROM OB TO LOOK AT OR CHECK OUT THE GALL BLADDER. 14:11 The patient presents with abdominal pain in the right upper quadrant. Onset: The kb symptoms/episode began/occurred 7 day(s) ago. The symptoms do not radiate. Associated signs and symptoms: Pertinent positives: nausea and vomiting, Pertinent negatives: anorexia, blood in stools, chest pain, constipation, diarrhea, dysuria, fever, headache, hematuria, palpitations, shortness of breath, vaginal discharge, vomiting blood. The symptoms are described as constant. Modifying factors: The symptoms are alleviated by nothing, the symptoms are aggravated by food. Severity of pain: At its worst the pain was moderate severe in the emergency department the pain has improved moderately. The patient has not experienced similar symptoms in the past. The patient has not recently seen a physician. Pt reports RUQ pain for a week. States pain is worse with eating, has not had an appetite, has had nausea and vomiting. Reports her OB (from [place]) told her to come get her gallbladder checked out. 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 - Social history:: Smoking status: Patient uses alcohol, occasionally. Smoking status: Patient reports the use of cigarette tobacco products, denies chronic smoking, but will smoke occasionally. ROS: 14:09 Constitutional: Negative for fever, chills, and weight loss, ENT: Negative for injury, kb pain, and discharge, Neck: Negative for injury, pain, and swelling, Cardiovascular: Negative for chest pain, palpitations, and edema, Respiratory: Negative for shortness of breath, cough, wheezing, and pleuritic chest pain, Back: Negative for injury and pain, MS/Extremity: Negative for injury and deformity, Skin: Negative for injury, rash, and discoloration, Neuro: Negative for headache, weakness, numbness, tingling, and seizure. 14:09 Abdomen/GI: Positive for abdominal pain, nausea and vomiting, Negative for diarrhea, constipation, abdominal cramps, abdominal distension, anorexia. Exam: 14:09 Constitutional: This is a well developed, well nourished patient who is awake, alert, kb and in no acute distress. Head/Face: Normocephalic, atraumatic. ENT: Nares patent. No nasal discharge, no septal abnormalities noted. Tympanic membranes are normal and external auditory canals are clear. Oropharynx with no redness, swelling, or masses, exudates, or evidence of obstruction, uvula midline. Mucous membranes moist. Neck: Trachea midline, no thyromegaly or masses palpated, and no cervical lymphadenopathy. Supple, full range of motion without nuchal rigidity, or vertebral point tenderness. No Meningismus. Chest/axilla: Normal chest wall appearance and motion. Nontender with no deformity. No lesions are appreciated. Cardiovascular: Regular rate and rhythm with a normal S1 and S2. No gallops, murmurs, or rubs. Normal PMI, no JVD. No pulse deficits. Respiratory: Lungs have equal breath sounds bilaterally, clear to auscultation and percussion. No rales, rhonchi or wheezes noted. No increased work of breathing, no retractions or nasal flaring. Back: No spinal tenderness. No costovertebral tenderness. Full range of motion. Skin: Warm, dry with normal turgor. Normal color with no rashes, no lesions, and no evidence of cellulitis. MS/ Extremity: Pulses equal, no cyanosis. Neurovascular intact. Full, normal range of motion. Neuro: Awake and alert, GCS 15, oriented to person, place, time, and situation. Cranial nerves II-XII grossly intact. Motor strength 5/5 in all extremities. Sensory grossly intact. Cerebellar exam normal. Normal gait. 14:09 Abdomen/GI: Inspection: abdomen appears normal, Bowel sounds: normal, in all quadrants, Palpation: soft, in all quadrants, moderate abdominal tenderness, in the right upper quadrant. Vital Signs: 13:27 BP 130 / 88; Pulse 79; Resp 16; Temp 98.6; Pulse Ox 100% on R/A; Weight 62.6 kg; Height iw 5 ft. 5 in. (165.10 cm); Pain 8/10; 14:30 BP 103 / 82; Pulse 75; Resp 17; Pulse Ox 100% ; vc 15:00 BP 100 / 82; Pulse 84; Resp 15; Pulse Ox 100% on R/A; vc 13:27 Body Mass Index 22.96 (62.60 kg, 165.10 cm) iw MDM: 13:53 Patient medically screened. kb 14:10 Data reviewed: vital signs, nurses notes. Data interpreted: Pulse oximetry: on room air kb is 100 %. Interpretation: normal. 14:43 Counseling: I had a detailed discussion with the patient and/or guardian regarding: the kb historical points, exam findings, and any diagnostic results supporting the discharge/admit diagnosis, lab results, radiology results, the need for outpatient follow up, a family practitioner, to return to the emergency department if symptoms worsen or persist or if there are any questions or concerns that arise at home. 14:48 ED course: Pt educated to follow up with GI for HIDA scan. Verbal understanding kb received. . 12/11 14:01 Order name: Basic Metabolic Panel; Complete Time: 14:43 kb 12/11 14:01 Order name: CBC with Diff; Complete Time: 14:29 kb 12/11 13:17 Order name: US Abdomen Limited; Complete Time: 14:10 kb 12/11 14:01 Order name: Hepatic Function; Complete Time: 14:43 kb 12/11 14:01 Order name: Lipase; Complete Time: 14:43 kb 12/11 14:01 Order name: IV Saline Lock; Complete Time: 14:19 kb 12/11 14:01 Order name: Labs collected and sent; Complete Time: 14:19 kb Administered Medications: 15:16 Drug: Pepcid 20 mg Route: IVP; Site: right antecubital; vc 15:17 Follow up: Response: Medication administered at discharge. vc 15:17 Drug: TORadol 30 mg Route: IVP; Site: right antecubital; vc 15:18 Follow up: Response: No adverse reaction; Medication administered at discharge. vc 15:17 Drug: Zofran (Ondansetron) 4 mg Route: IVP; Site: right antecubital; vc 15:17 Follow up: Response: No adverse reaction; Medication administered at discharge. vc Disposition: 17:16 Co-signature as Attending Physician, Erick Juarez MD I agree with the assessment and kdr plan of care. Disposition: 12/12/19 14:47 Discharged to Home. Impression: Upper abdominal pain, unspecified. - Condition is Stable. - Discharge Instructions: Biliary Colic, Adult, Abdominal Pain, Adult, [id number]. - Prescriptions for Bentyl 20 mg Oral Tablet - take 1 tablet by ORAL route every 6 hours As needed; 20 tablet. Zofran 4 mg Oral Tablet - take 1 tablet by ORAL route every 6 hours As needed; 20 tablet. Diclofenac Sodium 75 mg Oral Tablet, Delayed Release (E.C.) - take 1 tablet by ORAL route 2 times per day As needed; 30 tablet. - Medication Reconciliation Form, Thank You Letter, Antibiotic Education, Prescription Opioid Use form. - Follow up: Emergency Department; When: As needed; Reason: Worsening of condition. Follow up: Private Physician; When: 2 - 3 days; Reason: Recheck today's complaints, Continuance of care, Re-evaluation by your physician. Signatures: Dispatcher [employer] EDWA Ines Reed, BARREL TESTER AND DRAINER-C BARREL TESTER AND DRAINER-Ckb Erick Juarez MD MD kdr Tram Luna, DORINA RN iw Vicky Scherer RN RN vc Corrections: (The following items were deleted from the chart) 15:19 14:47 12/12/2019 14:47 Discharged to Home. Impression: Upper abdominal pain, vc unspecified. Condition is Stable. Forms are Medication Reconciliation Form, Thank You Letter, Antibiotic Education, Prescription Opioid Use. Follow up: Emergency Department; When: As needed; Reason: Worsening of condition. Follow up: Private Physician; When: 2 - 3 days; Reason: Recheck today's complaints, Continuance of care, Re-evaluation by your physician. kb
[2019-12-12] MEDS ORDERED: ONDANSETRON 4 MG/2 ML VIAL ONE (15:09)
[2019-12-12] MEDS ORDERED: KETOROLAC 30 MG/ML INJ ONE (15:09)
[2019-12-12] MEDS ORDERED: FAMOTIDINE 20 MG/2 ML VIAL IV ONE (15:09)
[2019-12-12 15:36] VITALS: BP 100/82; TEMP 98.6; O2SAT 100
== END 2019-12-12 15:19 | disposition home or self-care (01) ==
LOC: ER 12:56
DX: R10.11 Right upper quadrant pain (principal); F17.210 Nicotine dependence, cigarettes, uncomplicated
CPT/HCPCS: 85025; 80048; 36415; 80076; 83690; 76705; 96375; 96374; 99284; J2405